=== PATIENT | female | born 1955 | race Caucasian/White ===

== ENCOUNTER 2019-07-25 14:02 | Observation (INO) | payer BC ==
[2019-07-25] MEDS ORDERED: Sodium Chloride 0.9% 10 ML Syringe FLUSH PRN (14:28)
[2019-07-25] MEDS ORDERED: Morphine 4 MG/ML Syringe IVPUSH ONE ×2 (14:30→16:14)
[2019-07-25] MEDS ORDERED: Prochlorperazine 10 MG/2 ML SDV IV ONE (14:30)
[2019-07-25] MEDS ORDERED: diphenhydrAMINE 50 MG/ML SDV IVPUSH ONE (14:31)
[2019-07-25] MEDS ORDERED: Ondansetron 4 MG/2 ML SDV IVPUSH ONE (14:39)
--- NOTE | 2019-07-25 14:39 | EDM.PDOC ---
ED HPI GENERAL MEDICAL PROBLEM - General Stated Complaint: Headache pain in neck fast heart rate Time Seen by Provider: 07/25/19 14:37 Source of Information: Reports: Patient, Family History Limitations: Reports: No Limitations - History of Present Illness INITIAL COMMENTS - FREE TEXT/NARRATIVE: Pt. presents to ER with complaints of severe headache, neck pain, nausea, and vomiting. She states that the discomfort started this AM around 9 AM. She states that she has vomited several times. She denies any head trauma. She states that the discomfort started after she was doing some lifting. She denies any history of headache in the past. Denies any history of migraines. No problems with speech/ambulation. Pt. also complains of some palpitations and possibly some chest pain earlier today as well. No active chest pain at this time. No numbness/tingling in extremities. No fever or chills. Pt. has a history of hypertension, mitral regurgitation, dyslipidemia, and smoking. Onset: Today Onset Date: 07/25/19 Location: Reports: Head, Chest Quality: Reports: Ache, Throbbing Severity: Severe Associated Symptoms: Reports: Chest Pain, Headaches, Nausea/Vomiting. Denies: Confusion, Cough, cough w sputum, Diaphoresis, Fever/Chills, Loss of Appetite, Rash, Seizure, Shortness of Breath, Syncope, Weakness - Related Data Allergies Allergy/AdvReac Type Severity Reaction Status Date / Time No Known Allergies Allergy Verified 07/25/19 14:28 ED ROS GENERAL - Review of Systems Review Of Systems: See Below Constitutional: Reports: No Symptoms HEENT: Reports: No Symptoms Respiratory: Reports: No Symptoms Cardiovascular: Reports: No Symptoms Endocrine: Reports: No Symptoms GI/Abdominal: Reports: Nausea, Vomiting : Reports: No Symptoms Musculoskeletal: Reports: Neck Pain Skin: Reports: No Symptoms Neurological: Reports: Headache. Denies: Numbness, Paresthesia, Seizure, Syncope, Tingling, Tremors, Trouble Speaking, Weakness, Change in Speech, Gait Disturbance Psychiatric: Reports: No Symptoms Hematologic/Lymphatic: Reports: No Symptoms Immunologic: Reports: No Symptoms ED EXAM, GENERAL - Physical Exam Exam: See Below Exam Limited By: No Limitations General Appearance: Alert, WD/WN, Anxious Eye Exam: Bilateral Eye: EOMI, Normal Fundi, Normal Inspection, PERRL Nose: Normal Inspection, Normal Mucosa, No Blood Throat/Mouth: Normal Inspection, Normal Lips, Normal Teeth, Normal Gums, Normal Oropharynx, Normal Voice, No Airway Compromise Head: Atraumatic, Normocephalic Neck: Normal Inspection, Supple, Non-Tender, Full Range of Motion Respiratory/Chest: No Respiratory Distress, Lungs Clear, Normal Breath Sounds, No Accessory Muscle Use, Chest Non-Tender Cardiovascular: Normal Peripheral Pulses, Regular Rate, Rhythm, No Edema, No Gallop, No JVD, No Murmur, No Rub Peripheral Pulses: 4+: Radial (L) GI/Abdominal: Normal Bowel Sounds, Soft, Non-Tender, No Organomegaly, No Distention, No Mass (Female) Exam: Deferred Rectal (Female) Exam: Deferred Back Exam: Normal Inspection, Full Range of Motion Extremities: Normal Inspection, Normal Range of Motion, Non-Tender, No Pedal Edema, Normal Capillary Refill Neurological: Alert, Oriented, CN II-XII Intact, Normal Cognition, Normal Gait, Normal Reflexes, No Motor/Sensory Deficits Psychiatric: Normal Affect, Normal Mood Skin Exam: Warm, Dry, Intact, Normal Color, No Rash Lymphatic: No Adenopathy Course - Vital Signs Last Recorded V/S: Last Vital Signs Temp 37.8 C 07/25/19 19:01 Pulse 84 07/25/19 19:01 Resp 14 07/25/19 19:01 BP 132/76 07/25/19 19:01 Pulse Ox 92 L 07/25/19 19:01 - Orders/Labs/Meds Orders: Active Orders 24 hr Category Date Time Status Cardiac Monitoring [RC] CONTINUOUS Care 07/25/19 15:38 Active EKG Documentation Completion [RC] STAT Care 07/25/19 14:29 Active Flat in Bed [RC] ASDIRECTED Care 07/25/19 15:32 Active Procedure Tray at Bedside [RC] ASDIRECTED Care 07/25/19 15:32 Active Verify Patient Consent Obtain [RC] ASDIRECTED Care 07/25/19 15:32 Active CULTURE CSF + SMEAR [] Stat Lab 07/25/19 16:11 Results VDRL, CSF Routine Lab 07/25/19 16:11 Received Sodium Chloride 0.9% [Saline Flush] Med 07/25/19 14:28 Active 10 ml FLUSH ASDIRECTED PRN ED Lumbar Puncture Reflex [OM.PC] Click To Edit Oth 07/25/19 15:32 Ordered Peripheral IV Insertion Adult [OM.PC] Routine Oth 07/25/19 14:29 Ordered Medication Orders Sodium Chloride (Normal Saline) 1,000 mls @ 150 mls/hr IV CONTINUOUS ONE Stop: 07/26/19 01:06 Last Admin: 07/25/19 19:52 Dose: 150 mls/hr Ketorolac Tromethamine (Toradol) 15 mg IVPUSH Q6H PRN PRN Reason: Pain (moderate 4-6) Morphine Sulfate (Morphine) 4 mg IVPUSH Q4H PRN PRN Reason: Pain (severe 7-10) Ondansetron HCl (Zofran) 4 mg IVPUSH Q8H PRN PRN Reason: Nausea Sodium Chloride (Saline Flush) 10 ml FLUSH ASDIRECTED PRN PRN Reason: Keep Vein Open Labs: Laboratory Tests 07/25/19 07/25/19 07/25/19 Range/Units 14:43 14:43 14:43 WBC 10.4 H (4.0-10.0) x10^3/uL RBC 5.10 (4.00-5.50) x10^6/uL Hgb 15.8 (12.0-16.0) g/dL Hct 46.8 (33.0-47.0) % MCV 91.8 (78.0-93.0) fL MCH 31.0 (26.0-32.0) pg MCHC 33.8 (32.0-36.0) g/dL RDW Coeff of Flynn 13.3 (10.0-15.0) % Plt Count 307 (130-400) x10^3/uL Neut % (Auto) 78.5 (50.0-80.0) % Lymph % (Auto) 16.7 L (25.0-50.0) % Slope % (Auto) 4.2 (2.0-11.0) % Eos % (Auto) 0.3 (0.0-4.0) % Baso % (Auto) 0.3 (0.2-1.2) % PT 10.0 (10.0-12.8) SEC INR 0.9 L (2.0-3.5) Sodium 142 (136-145) mmol/L Potassium 3.9 (3.5-5.1) mmol/L Chloride 102 (98-107) mmol/L Carbon Dioxide 27 (21-32) mmol/L Anion Gap 16.9 (10-20) mmol/L BUN 9 (7-18) mg/dL Creatinine 0.8 (0.55-1.02) mg/dL Est Cr Clr Drug Dosing TNP Estimated GFR (MDRD) > 60 Glucose 107 H (74-106) mg/dL Calcium 9.4 (8.5-10.1) mg/dL Corrected Calcium 8.92 (8.5-10.1) mg/dL Magnesium 2.0 (1.8-2.4) mg/dL Total Bilirubin 0.7 (0.2-1.0) mg/dL AST 20 (15-37) U/L ALT 23 (14-59) U/L Alkaline Phosphatase 80 (46-116) U/L Troponin I < 0.017 (<=0.056) ng/mL C-Reactive Protein 0.3 (<=0.9) mg/dL Total Protein 8.0 (6.4-8.2) g/dL Albumin 4.6 (3.4-5.0) g/dL Globulin 3.4 Albumin/Globulin Ratio 1.35 Urine Color (YELLOW) Urine Appearance (CLEAR) Urine pH (5.0-8.0) Ur Specific [place] Urine Protein (NEGATIVE) mg/dL Urine Glucose (UA) (NEGATIVE) mg/dL Urine Ketones (NEGATIVE) mg/dL Urine Occult Blood (NEGATIVE) Urine Nitrite (NEGATIVE) Urine Bilirubin (NEGATIVE) Urine Urobilinogen (0.2) EU/dL Ur Leukocyte Esterase (NEGATIVE) Urine RBC (NOT SEEN) /HPF Urine WBC (NOT SEEN) /HPF Ur Squamous Epith Cells (NEGATIVE) /HPF Urine Bacteria (NEGATIVE) /HPF Urine Mucus (NEGATIVE) /LPF CSF WBC (3) (0-10) CSF Neutrophils (3) (0-8) CSF Lymphocytes (3) (0-8) CSF Glucose (40-70) mg/dL CSF Total Protein (15.0-45.0) mg/dL 07/25/19 07/25/19 07/25/19 Range/Units 16:11 16:11 17:13 WBC (4.0-10.0) x10^3/uL RBC (4.00-5.50) x10^6/uL Hgb (12.0-16.0) g/dL Hct (33.0-47.0) % MCV (78.0-93.0) fL MCH (26.0-32.0) pg MCHC (32.0-36.0) g/dL RDW Coeff of Flynn (10.0-15.0) % Plt Count (130-400) x10^3/uL Neut % (Auto) (50.0-80.0) % Lymph % (Auto) (25.0-50.0) % Slope % (Auto) (2.0-11.0) % Eos % (Auto) (0.0-4.0) % Baso % (Auto) (0.2-1.2) % PT (10.0-12.8) SEC INR (2.0-3.5) Sodium (136-145) mmol/L Potassium (3.5-5.1) mmol/L Chloride (98-107) mmol/L Carbon Dioxide (21-32) mmol/L Anion Gap (10-20) mmol/L BUN (7-18) mg/dL Creatinine (0.55-1.02) mg/dL Est Cr Clr Drug Dosing Estimated GFR (MDRD) Glucose (74-106) mg/dL Calcium (8.5-10.1) mg/dL Corrected Calcium (8.5-10.1) mg/dL Magnesium (1.8-2.4) mg/dL Total Bilirubin (0.2-1.0) mg/dL AST (15-37) U/L ALT (14-59) U/L Alkaline Phosphatase (46-116) U/L Troponin I (<=0.056) ng/mL C-Reactive Protein (<=0.9) mg/dL Total Protein (6.4-8.2) g/dL Albumin (3.4-5.0) g/dL Globulin Albumin/Globulin Ratio Urine Color Yellow (YELLOW) Urine Appearance Clear (CLEAR) Urine pH 7.0 (5.0-8.0) Ur Specific [place] 1.025 Urine Protein 30 H (NEGATIVE) mg/dL Urine Glucose (UA) Negative (NEGATIVE) mg/dL Urine Ketones 80 H (NEGATIVE) mg/dL Urine Occult Blood Trace-intact H (NEGATIVE) Urine Nitrite Negative (NEGATIVE) Urine Bilirubin Negative (NEGATIVE) Urine Urobilinogen 0.2 (0.2) EU/dL Ur Leukocyte Esterase Trace H (NEGATIVE) Urine RBC 0-5 (NOT SEEN) /HPF Urine WBC 0-5 (NOT SEEN) /HPF Ur Squamous Epith Cells Few H (NEGATIVE) /HPF Urine Bacteria Few H (NEGATIVE) /HPF Urine Mucus Moderate H (NEGATIVE) /LPF CSF WBC (3) 0 (0-10) CSF Neutrophils (3) 0 (0-8) CSF Lymphocytes (3) 0 (0-8) CSF Glucose 56 (40-70) mg/dL CSF Total Protein 64.4 H (15.0-45.0) mg/dL Meds: Medications Generic Name Dose Route Start Last Admin Trade Name Tammy PRN Reason Stop Dose Admin Sodium Chloride 1,000 mls @ 150 mls/hr 07/25/19 18:27 07/25/19 19:52 Normal Saline IV 07/26/19 01:06 150 mls/hr CONTINUOUS ONE Administration Ketorolac Tromethamine 15 mg 07/25/19 19:33 Toradol IVPUSH Q6H PRN Pain (moderate 4-6) Morphine Sulfate 4 mg 07/25/19 19:34 Morphine IVPUSH Q4H PRN Pain (severe 7-10) Ondansetron HCl 4 mg 07/25/19 19:33 Zofran IVPUSH Q8H PRN Nausea Sodium Chloride 10 ml 07/25/19 14:28 Saline Flush FLUSH ASDIRECTED PRN Keep Vein Open Discontinued Medications Generic Name Dose Route Start Last Admin Trade Name Tammy PRN Reason Stop Dose Admin Diphenhydramine HCl 50 mg 07/25/19 14:31 07/25/19 14:53 Benadryl IVPUSH 07/25/19 14:32 50 mg ONETIME ONE Administration Sodium Chloride 1,000 mls @ 1,000 mls/hr 07/25/19 15:31 07/25/19 15:44 Normal Saline IV 07/25/19 16:30 1,000 mls/hr .BOLUS ONE Administration Methylprednisolone Sodium Succinate 125 mg 07/25/19 17:54 07/25/19 18:35 Solu-Medrol IVPUSH 07/25/19 17:55 125 mg ONETIME ONE Administration Morphine Sulfate 4 mg 07/25/19 14:30 07/25/19 14:53 Morphine IVPUSH 07/25/19 14:31 4 mg ONETIME ONE Administration Morphine Sulfate 4 mg 07/25/19 16:14 07/25/19 16:25 Morphine IVPUSH 07/25/19 16:15 4 mg ONETIME ONE Administration Ondansetron HCl 4 mg 07/25/19 14:39 07/25/19 14:53 Zofran IVPUSH 07/25/19 14:40 4 mg ONETIME ONE Administration Prochlorperazine Edisylate 5 mg 07/25/19 14:30 07/25/19 16:26 Compazine IV 07/25/19 14:31 5 mg ONETIME ONE Administration Departure - Departure Time of Disposition: 18:45 Disposition: Refer to Observation Clinical Impression: Tension-type headache, Dehydration - Discharge Information Sepsis Event Note - Focused Exam Vital Signs: Vital Signs Temp Pulse Resp BP Pulse Ox Pulse Ox 07/25/19 16:36 96 07/25/19 16:31 37.2 C 76 16 126/75 97 Date Exam was Performed: 07/25/19 Time Exam was Performed: 20:44 - Problem List Review Problem List Initiated/Reviewed/Updated: Yes - My Orders Last 24 Hours: My Active Orders 07/25/19 14:28 Sodium Chloride 0.9% [Saline Flush] 10 ml FLUSH ASDIRECTED PRN 07/25/19 14:29 EKG Documentation Completion [RC] STAT Peripheral IV Insertion Adult [OM.PC] Routine 07/25/19 15:32 Flat in Bed [RC] ASDIRECTED Procedure Tray at Bedside [RC] ASDIRECTED Verify Patient Consent Obtain [RC] ASDIRECTED ED Lumbar Puncture Reflex [OM.PC] Click To Edit 07/25/19 15:38 Cardiac Monitoring [RC] CONTINUOUS 07/25/19 16:11 CULTURE CSF + SMEAR [RM] Stat VDRL, CSF Routine - Assessment/Plan Admission H&P: Please use this note as an admission H&P Last 24 Hours: My Active Orders 07/25/19 14:28 Sodium Chloride 0.9% [Saline Flush] 10 ml FLUSH ASDIRECTED PRN 07/25/19 14:29 EKG Documentation Completion [RC] STAT Peripheral IV Insertion Adult [OM.PC] Routine 07/25/19 15:32 Flat in Bed [RC] ASDIRECTED Procedure Tray at Bedside [RC] ASDIRECTED Verify Patient Consent Obtain [RC] ASDIRECTED ED Lumbar Puncture Reflex [OM.PC] Click To Edit 07/25/19 15:38 Cardiac Monitoring [RC] CONTINUOUS 07/25/19 16:11 CULTURE CSF + SMEAR [] Stat VDRL, CSF Routine Plan: Discussed findings with Dr. Jones, [facility]. He states that she does not require neuro referral at this point, as she has had a complete workup today. LP and CT brain are negative. She will be admitted for continued hydration and pain control. She is a code 1. Discussed case with Dr. Gruber. She will discharge the patient tomorrow if she is continuing to show improvement. All questions were answered.
[2019-07-25 15:18] LABS: ANION GAP 16.9 mmol/L (10-20); CHLORIDE,CL 102 mmol/L (98-107); SODIUM,NA 142 mmol/L (136-145)
--- NOTE | 2019-07-25 15:26 | CT ---
[id number] CT/CT Head WO IV EXAM: CT Head WO IV CLINICAL DATA: SEVERE HEADACHE AT BASE OF SKULL. COMPARISON STUDY: None FINDINGS: No intracranial hemorrhage, extra-axial fluid collection, mass, or acute ischemia. No hydrocephalus. 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 Paranasal sinuses and mastoid air cells are clear. IMPRESSION: No acute intracranial findings. Erickson Parker MD 07/25/19 [id number] Thank you for allowing us to participate in the care of your patient.
[2019-07-25] MEDS ORDERED: Sodium Chloride 0.9% 1,000 ML IV ONE ×2 (15:31→18:27)
--- NOTE | 2019-07-25 16:47 | PCM.PRNOTE ---
- Free Text/Narrative Note: Lumbar puncture. Informed consent: Written and verbal informed consent were given to the patient. The risks and benefits procedure were discussed. The benefit being the diagnosis of the spinal fluid. Risks being infection, bleeding, inability to be successful, postdural puncture headache, possible nerve damage. Patient understands this and agrees to proceed. Procedure: Patient was placed in the sitting position. The L4 vertebra was identified by using iliac crest. The spaces were marked for the L2-3, L3-4, and L4-5 interspace. L4-5 interspace was selected. The area was prepped with ChloraPrep in a wide manner scrubbing for approximately 2 minutes. The prep was allowed to dry completely. I donned sterile gloves in addition to my cap and mask. A sterile fenestrated drape was placed over the area. 1% lidocaine was used to infiltrate the interspace superficially and deeply. A 20-gauge introducer was passed. A 25-gauge by 5 inch Pencan needle was passed. A transition was noted as the tip of the needle passed through the dura. Stylette was removed. Good CSF flow returned. CSF flow was clear. 4 tubes ernie numbers 1- 4 were used and filled in numerical order. Each tube was filled to approximately 0.5-1 mL these were handed off to the lab as they filled. The needle and introducer were removed. Pressure was applied. A Band-Aid was applied. No signs of hematoma were noted. Patient tolerated the procedure well with no untoward effects noted.
[2019-07-25] MEDS ORDERED: methylPREDNISolone Sodium Succinate 125 MG/2 ML SDV IVPUSH ONE (17:54)
[2019-07-25] MEDS ORDERED: Ondansetron 4 MG/2 ML SDV IVPUSH PRN (19:33)
[2019-07-25] MEDS ORDERED: Ketorolac 15 MG/ML SDV IVPUSH PRN (19:33)
[2019-07-25] MEDS ORDERED: Morphine 4 MG/ML Syringe IVPUSH PRN (19:34)
[2019-07-25] MEDS ORDERED: Simvastatin 20 MG Tab PO SCH (20:54)
[2019-07-25] MEDS: Metoprolol Tartrate 25 MG Tab PO SCH (21:22)
[2019-07-26] MEDS ORDERED: Multivitamin, Stress Formula with Zinc Tab PO SCH (08:00)
[2019-07-26] MEDS: Metoprolol Tartrate 25 MG Tab PO SCH (08:25)
[2019-07-26] MEDS ORDERED: Aspirin 81 MG Tab.EC PO SCH (20:00)
--- NOTE | 2019-07-26 21:56 | DISCH ---
PRIMARY DISCHARGE DIAGNOSES: 1. Severe posterior headache, possibly a tension headache. 2. Neck pain. The patient has had on and off for years. 3. Nausea and vomiting leading to dehydration. 4. Essential hypertension. 5. Mild mitral regurgitation. 6. Remote history of kidney stones. 7. Hyperlipidemia. REASON FOR ADMISSION: On the date of admission, this 63-year-old female was just at work when she could feel sort of a headache coming on. It became quite severe just in 1 area on the right posterior neck, but then sort of spreading. She did not have any speech or ambulation problems. She did not have any history of migraines. She did at one point have some tingling in both upper extremities, but this has resolved. HOSPITAL COURSE: She was brought into the emergency room and had a head CT, which did not show any acute bleeding. She then underwent a lumbar puncture, which showed 0 wbc's and 56 glucose and elevated 64.4 protein with upper limits being 45. She was given normal saline, ketorolac, morphine, Zofran, Benadryl, Solu-Medrol, more morphine, and Compazine, and eventually her symptoms resolved. She was kept overnight on observation. She was monitored with telemetry and had no events. Neurology was contacted by the ER provider, who did not recommend a neuro referral at that point. She was feeling pain free this morning in her head, still some of that neck discomfort, she could even push on the sore area. She states in the past she has been to the chiropractor for that, but nothing recently. She had no further doses of pain medication since around 4:30 pm yesterday and was hoping to be discharged this morning. DISCHARGE PLANS AND INSTRUCTIONS: The patient is discharged home. No medication changes were made. She does take aspirin at home. Physical exam and the rest of her discharge instructions are in another dictation MKA: 07/26/2019 09:52:37 MODL: 07/26/2019 21:48:08 /[id number]
--- NOTE | 2019-07-27 12:10 | DISCH ---
CONTINUATION: PHYSICAL EXAMINATION: Discharge vitals: Include a temperature of 97.9, pulse 71, blood pressure 123/77, respiratory rate 16, and O2 of 91% on room air. General: She is in no acute distress. Heart: Regular rate and rhythm. S1, S2 without murmur. Lungs: Sounds are clear to auscultation bilaterally without crackles or wheezes. Abdomen: Has positive bowel sounds. Soft, nontender. Extremities: Warm and dry. No edema. She is moving all extremities equally. Neurologic: Her speech is clear and intact. She is answering all questions appropriately. Her extraocular motor function is intact. Her pupils are equal and round. The patient is not depressed or anxious. She did have some tenderness to the paraspinal muscles on the right upper neck and base of the right skull. DISCHARGE PLANS AND INSTRUCTIONS: She was to follow up with Dr. Villela in the clinic in 2 weeks' time. No medication changes were made. She was encouraged to quit smoking. If headaches return or neck pain does not resolve, she should consider physical therapy. She declined to take any muscle relaxants, but Advil or Aleve were okay to take. MKA: 07/26/2019 20:15:10 MODL: 07/26/2019 21:32:52 /[id number]
== END 2019-07-26 09:55 | disposition home or self-care (01) ==
LOC: VM.ED 14:02 → VM.MS 17:55
PROVIDERS: ADMIT Physician Assistant; ATTEND Physician Assistant
DX: R51 Headache (principal); M54.2 Cervicalgia; E86.0 Dehydration; I10 Essential (primary) hypertension; E78.5 Hyperlipidemia, unspecified; I34.0 Nonrheumatic mitral (valve) insufficiency; Z87.442 Personal history of urinary calculi
CPT/HCPCS: 36415; 62270; 70450; 80053; 81001; 82945; 83735; 84157; 84484; 85025; 85610; 86140; 87070; 87205; 89050; 93005; 94760; A9270; J0780; J1200; J2270; J2405; J2930; J7030; 96361; 96374; 96375; 96376; 99285-25